=== PATIENT | female | born 1990 | race Caucasian/White ===

== ENCOUNTER → 2018-02-17 15:03 | Outpatient (CLI) | payer OTHER, SELFPAY ==
[2018-02-17 15:23] LABS: Strep Scrn Group A (Rapid) Negative (Negative)
== END ==
PROVIDERS: Visit Provider Nurse Practitioner Family
DX: J02.9 Acute pharyngitis, unspecified (principal)
CPT/HCPCS: 87430

== ENCOUNTER → 2018-03-13 17:10 | Outpatient (CLI) | payer OTHER, SELFPAY ==
[2018-03-13 18:55] LABS: HCG Qualitative, Serum Negative (Negative)
[2018-03-13 19:17] LABS: Basophils % 0.5 % (0.1-2.0); Eosinophils # 0.1 K/mm3 (0.0-0.4); Eosinophils % 0.9 % (0.1-12.0); Hematocrit 44.3 % (37.0-47.0); Hemoglobin 14.9 g/dL (12.2-16.2); Lymphocytes # 2.5 K/mm3 (0.7-4.5); Lymphocytes % 36.3 K/mm3 (10-50); Mean Corpuscular HGB Conc 33.7 g/dL (31.8-35.4); Mean Corpuscular Hemoglobin 32.3 pg (27.0-31.2); Mean Platelet Volume 9.8 fl (7.4-10.4); Monocytes # 0.3 K/mm3 (0.1-1.0); Monocytes % 4.6 % (1.7-9.3); Neutrophils % 57.7 % (37.0-80.0); Platelet Count 206 K/mm3 (142-424); Red Blood Count 4.62 M/mm3 (4.20-5.40); White Blood Count 6.8 K/mm3 (4.8-10.8)
== END ==
PROVIDERS: Visit Provider Otolaryngology
DX: Z01.818 Encounter for other preprocedural examination (principal); J35.01 Chronic tonsillitis
CPT/HCPCS: 36415; 84703; 85025

== ENCOUNTER → 2018-08-05 20:23 | Outpatient (REF) | payer OTHER, SELFPAY | LOC: LAB 20:23 | PROVIDERS: Visit Provider Nurse Practitioner Family | DX: R50.9 Fever, unspecified (principal) ==

== ENCOUNTER → 2019-03-30 10:33 | Outpatient (CLI) | payer OTHER, SELFPAY ==
[2019-03-30 10:41] LABS: Microscopic, Urine URINE MICROSCOPIC (MICROSCOPIC)
[2019-03-30 11:54] LABS: Appearance,Urine SL CLOUDY (Clear); Bilirubin,Urine Negative (Negative); Blood, Urine 3+ (Negative); Color,Urine YELLOW (Yellow); Glucose,Urine (UA) Negative (Negative); Ketones,Urine Negative (Negative); Leukocyte Esterase,Urine Negative (Negative); Nitrate,Urine Negative (Negative); PH,Urine 5.5 (5.0-8.5); Protein,Urine Negative (Negative); Specific Gravity, Urine >= 1.030 (1.005-1.030); Urobilinogen,Urine 0.2 EU/dl (0.2)
[2019-03-30 11:59] LABS: Creatinine,Urine Random 197 mg/dL (20-320); Total Protein,Urine Random 20.4 mg/dL (0.0-11.9)
[2019-03-30 12:05] LABS: Bacteria,Urine Trace /lpf; WBC,Urine Occasional #/hpf (0-3)
[2019-03-30 12:39] LABS: Albumin Level 3.8 gm/dL (3.4-5.0); Anion Gap 11.3 mEq/L (5-15); Blood Urea Nitrogen 12 mg/dL (7-18); Carbon Dioxide 28 mmol/L (21.0-32.0); Chloride 107 mmol/L (98-107); Creatinine,Serum 0.75 mg/dL (0.55-1.02); Estimated Glomerular Filt Rate 91 ml/min (>60); GFR (African American) 111 ML/MIN (>60); Glucose 79 mg/dL (74-106); Phosphorous 3.6 mg/dL (2.4-4.9); Potassium 4.3 mmoL/L (3.5-5.1); Sodium 142 mmol/L (136-145)
[2019-04-01 06:06] LABS: Antinuclear Antibodies, IFA Positive (.); Complement C3 139 mg/dL (82-167)
== END ==
PROVIDERS: Visit Provider Internal Medicine Nephrology
DX: R80.9 Proteinuria, unspecified (principal)
CPT/HCPCS: 36415; 80069; 81001; 82570; 84155; 86038; 86161

== ENCOUNTER → 2021-09-13 11:56 | Outpatient (CLI) | payer OTHER, SELFPAY | PROVIDERS: PCP Family Medicine; Visit Provider Nurse Practitioner | DX: Z20.822 Contact with and (suspected) exposure to COVID-19 (principal) | CPT/HCPCS: C9803; U0003; U0005 ==

== ENCOUNTER → 2021-11-16 10:25 | Outpatient (CLI) | payer OTHER, SELFPAY | PROVIDERS: PCP Family Medicine; Visit Provider Nurse Practitioner | DX: Z20.822 Contact with and (suspected) exposure to COVID-19 (principal) | CPT/HCPCS: C9803; U0003; U0005 ==

== ENCOUNTER → 2021-11-27 09:21 | Outpatient (CLI) | payer OTHER, SELFPAY | PROVIDERS: PCP Family Medicine; Visit Provider Nurse Practitioner | DX: U07.1 COVID-19 (principal) | CPT/HCPCS: C9803; U0003; U0005 ==

== ENCOUNTER → 2022-03-28 16:00 | Outpatient (CLI) | payer OTHER, SELFPAY ==
[2022-03-29 08:07] LABS: Coronavirus 19, PCR Not Detected (NotDetected); Influenza A, PCR Not Detected (NotDetected); Influenza B, PCR Not Detected (NotDetected)
== END ==
PROVIDERS: PCP Nurse Practitioner Family; Visit Provider Nurse Practitioner Family
DX: Z20.822 Contact with and (suspected) exposure to COVID-19 (principal)
CPT/HCPCS: 87275; 87276; C9803; U0003; U0005

== ENCOUNTER → 2022-12-24 13:21 | Outpatient (CLI) | payer BC, SELFPAY ==
--- NOTE | 2022-12-24 13:21 | US_ITS ---
FINAL REPORT CLINICAL HISTORY: menorrhagia FINDINGS: Transvaginal Ultrasound Technique: Transvaginal sonographic images of the pelvis were obtained. Findings: The uterus is normal in size. The endometrium is unremarkable. The right ovary is unremarkable. The left ovary is unremarkable. There is no significant free fluid. IMPRESSION: No acute process. Reviewed, Interpreted and Dictated by Kelby Chaves III, MD Transcribed by Jass Zambrano Authenticated and [facility]
== END ==
LOC: RAD 13:21
PROVIDERS: PCP Nurse Practitioner Family; Visit Provider Obstetrics & Gynecology
DX: N92.0 Excessive and frequent menstruation with regular cycle (principal)
CPT/HCPCS: 76830

== ENCOUNTER → 2023-02-26 11:10 | Outpatient (CLI) | payer OTHER, SELFPAY ==
[2023-03-10 21:11] LABS: HIV Screen 4th Generation wRfx Non Reactive; Hep B Surface Ab, Qual Non Reactive; Hepatitis C Antibody Non Reactive
== END ==
PROVIDERS: PCP Nurse Practitioner Family; Visit Provider Allergy & Immunology
DX: Z77.21 Contact with and (suspected) exposure to potentially hazardous body fluids (principal); W46.1XXA Contact with contaminated hypodermic needle, initial encounter
CPT/HCPCS: 36415; 86703; 86706; 87380; G0432

== ENCOUNTER → 2023-03-06 13:03 | Outpatient (CLI) | payer BC, SELFPAY ==
--- NOTE | 2023-03-06 13:11 | XR_ITS ---
FINAL REPORT CLINICAL HISTORY: FRACTURE OF LEFT PATELLA FINDINGS: Left knee Three views were obtained. There is no acute fracture or dislocation. No joint effusion is identified. The joint spaces appear normal. No soft tissue abnormality is identified. IMPRESSION: No acute process. Reviewed, Interpreted and Dictated by Nir Garner MD Transcribed by Ana Escamilla Authenticated and [facility]
== END ==
LOC: RAD 13:06
PROVIDERS: PCP Nurse Practitioner Family; Visit Provider Nurse Practitioner
DX: M25.562 Pain in left knee (principal); S82.002A Unspecified fracture of left patella, initial encounter for closed fracture
CPT/HCPCS: 73562

== ENCOUNTER 2023-03-07 16:10 | Outpatient (RCR) | payer BC, SELFPAY | END 2023-03-07 17:00 | disposition home or self-care (01) | LOC: PT 16:10 | PROVIDERS: Visit Provider Nurse Practitioner Family | DX: S89.92XA Unspecified injury of left lower leg, initial encounter (principal); M25.562 Pain in left knee; M25.462 Effusion, left knee; M25.662 Stiffness of left knee, not elsewhere classified | CPT/HCPCS: 97760 ==

== ENCOUNTER → 2023-03-13 10:11 | Outpatient (CLI) | payer BC, SELFPAY ==
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
== END ==
LOC: RAD 10:11
PROVIDERS: PCP Nurse Practitioner Family; Visit Provider Nurse Practitioner Family
DX: M25.562 Pain in left knee (principal); M25.462 Effusion, left knee
CPT/HCPCS: 73721

== ENCOUNTER 2024-11-02 14:44 | Outpatient (CLI) | payer OTHER, SELFPAY ==
--- NOTE | 2024-11-02 14:44 | MR_ITS ---
FINAL REPORT TECHNIQUE: Multiplanar and multisequence imaging of the brain was obtained before and after contrast injection. CLINICAL HISTORY: rule out acoustic neuroma hearing loss in left ear 9 ml prohance FINDINGS: The overall image quality is somewhat degraded by motion artifact. Specific imaging targeted towards the internal auditory canals was performed as well, in this patient with hearing loss in the left ear. There is no mass effect or midline shift. No abnormal signal is identified in the periventricular or subcortical white matter. No hydrocephalus. The cerebellum and brainstem have a normal appearance. There are no areas of restricted diffusion on diffusion weighted images to suggest acute infarct. Soft tissues are without acute abnormality. Post contrast images reveal no pathologic contrast enhancement. Specifically, there is no evidence of a cerebellopontine angle mass, and there is no enhancement noted in the internal auditory canals. IMPRESSION: No acute intracranial abnormality and no pathologic contrast enhancement. Specifically, no cerebellopontine angle mass or enhancement in the internal auditory canals is identified. Reviewed, Interpreted and Dictated by Hellen Tobar MD Transcribed by Dominique oWods Authenticated and [facility]
[2024-11-02] MEDS: GADOTERIDOL INJ 10ML SYRINGE 9 ML IV (16:52)
[2024-11-02] MEDS: SODIUM CHLORIDE 0.9% 10ML SYR (RAD ONLY) 10 ML IV (16:52)
== END 2024-11-02 23:59 | disposition home or self-care (01) ==
LOC: RAD 14:44
PROVIDERS: PCP Nurse Practitioner; Visit Provider Otolaryngology
DX: H91.92 Unspecified hearing loss, left ear (principal)
CPT/HCPCS: 70553; A9576

== ENCOUNTER 2025-07-08 10:56 | Outpatient (CLI) | payer OTHER, SELFPAY ==
--- NOTE | 2025-07-08 10:58 | XR_ITS ---
FINAL REPORT CLINICAL HISTORY: Lumbar back pain, nki COMPARISON: None FINDINGS: LUMBOSACRAL SPINE SERIES Five views of the lumbosacral spine were obtained. There is no fracture present. There is no malalignment. There are no significant degenerative changes. IMPRESSION: No acute process. Reviewed, Interpreted and Dictated by Nir Garner MD Transcribed by Belinda Nina Authenticated and [facility]
--- OUTSIDE RECORDS SUMMARY | 2025-07-08 11:00 | XMS_ITS | Encounter Summary ---
Author Organization [employer] ([place], [place], [place], [place]) Address [address] [place] [address] Care Team Providers Care Pole Framer Name Role Phone Unavailable Primary Care Provider Unavailabl e Encounter Details Date Type Department Care Team (Late st Contact Info) Description 04/17/2019 Transcribed Document [facility] [place] Family Medicine [address] [place] [address] ProviderChoco MD [address] [place] [address] Social History Tobacco Use Types Packs/Day Years Used Date Smoking Tobacco: Never Assessed Comments Unknown Sex and Gender Information Value Date Recorded Sex Assigned at Female 05/01/2022 8:19 PM CDT Legal Sex Female 8:19 PM CDT Gender Identity Female 05/01/2022 8:19 PM CDT Sexual Orientation Not on file documented as of this encounter Miscellaneous Notes * [employer] Conversion Note - Historical ProviderMD - 04/17/2019 2:00 AM CDT Manager Medical Details Entered On: 04/17/2019 1:37 EDT Performed On: 04/17/2019 2:00 EDT by Citlali Skinner Rn Order Details Transport Mode Order Detail : Wheelchair Isolation Precautions Order Detail : Standard Precautions Order Detail : 0 IV Order Detail : 1 Oxygen Order Detail : 0 Nurse Collect Order Detail : 0 Lift/Transfer : Independent Central Line Order Detail : No Room Service : Appropriate Arterial Line : No Citlali Skinner Rn - 04/17/2019 1:36 EDT documented in this encounter Plan of Treatment Not on file documented as of this encounter Visit Diagnoses Not on filedocumented in this encounter
--- OUTSIDE RECORDS SUMMARY | 2025-07-08 11:00 | XMS_ITS | Encounter Summary ---
Author Organization [employer] ([place], [place], [place], [place]) Address [address] [place] [address] Care Team Providers Care Automotive Glass Technician Name Role Phone Unavailable Primary Care Provider Unavailabl e Encounter Details Date Type Department Care Team (Late st Contact Info) Description 04/16/2019 Transcribed Document [facility] [place] [facility] Family Medicine [address] [place] [address] ProviderChoco MD [address] [place] [address] Social History Tobacco Use Types [...] Cerner Conversion Note - Historical ProviderMD - 04/16/2019 11:22 AM CDT Event Note Entered On: 04/16/2019 11:23 EDT Performed On: 04/16/2019 11:22 EDT by GIO GARVEY RN Event Note Event Date/Time : 04/16/2019 11:22 EDT Event Location : Assigned room Event Details : Other: report called to 4a GIO GARVEY RN - 04/16/2019 11:22 EDT Electronically signed by [facility] Conversion Software Integrator Cerner at 02/22/2023 4:17 PM CDT documented in this encounter Plan of Treatment Not on file documented as of this encounter Visit Diagnoses Not on filedocumented in this encounter
--- OUTSIDE RECORDS SUMMARY | 2025-07-08 11:00 | XMS_ITS | Encounter Summary ---
Author Organization [employer] ([place], [place], [place], [place]) Address [address] [place] [address] Care Team Providers Care Cigar Maker Name Role Phone Unavailable Primary Care Provider Unavailabl e Encounter Details Date Type Department Care Team (Late st Contact Info) Description 04/17/2019 Transcribed Document [facility] [place] Family Medicine [address] [place] [address] ProviderChoco MD [address] [place] [address] Social History Tobacco Use Types Packs/Day Years Used Date Smoking Tobacco: Never Assessed Comments Unknown Sex and Gender Information Value Date Recorded Sex Assigned at Female 05/01/2022 8:19 PM CDT Legal Sex Female 8:19 PM CDT Gender Identity Female 05/01/2022 8:19 PM CDT Sexual Orientation Not on file documented as of this encounter Miscellaneous Notes * Cerner Conversion Note - Choco Mayes MD - 04/17/2019 7:50 AM CDT Patient: NED HOPE Age: 29 years Sex: Female : 1990 Associated Diagnoses: Status post biopsy of kidney, left; Proteinuria; Thrombocytopenia Author: TERRY MARQUES MD-INT Basic Information 29 years old white female with a history of heavy proteinuria was referred for left KIDNEY biopsy by interventional radiology and was admitted under my care for observation after the procedure. Patient denies any abdominal pain or left CVA pain, there is no nausea or vomiting. There is no hematuria or any urinary symptoms. Also that is no fever or chills. Reviewing her blood work, noticed that the patient has thrombocytopenia and I recommended to follow-up with her PCP in 1-2 weeks. Today, patient is awake alert cooperative responsive under no acute distress. She is getting a bowel movement around without any problem. Patient is stable for discharge. Discharge Information Patient had surgery and is recovering well. patient is awake, alert, cooperative, responsive, and is under no acute distress. Patient's pain free. Patient is on DVT prophylaxis and also on scheduled bowel regimen. Urine out-put is adequate. Started on clear liquid diet & advanced as tolerated to regular diet. Review of Systems Constitutional: No fever, No weakness, No fatigue. Eye: No recent visual problem, No double vision, No visual disturbances. Ear/Nose/Mouth/Throat: No nasal congestion, No sore throat. Respiratory: No shortness of breath, No cough, No wheezing. Cardiovascular: No chest pain, No tachycardia. Gastrointestinal: No nausea, No vomiting. Genitourinary: Negative. Musculoskeletal: Negative. Integumentary: No rash, No pruritus. Neurologic: Alert and oriented X4, no dizziness. Health Status Allergies: Allergies (1) Active Reaction No Known Medication Allergies None Documented Current medications: Medications (26) Active Scheduled: (1) docusate sodium 100 mg cap 100 mg 1 Cap, Oral, BID Continuous: (0) PRN: (25) acetaminophen 325 mg tab 650 mg 2 Tab, Oral, Q4H acetaminophen/HYDROcodone 325/5 mg tab 1 Tab, Oral, Q4H acetaminophen/HYDROcodone 325/5 mg tab 2 Tab, Oral, Q4H ALPRAZolam 0.25 mg tab 0.25 mg 1 Tab, Oral, Q6H bisacodyl 10 mg supp 10 mg 1 Supp, Rectal, BID calcium gluconate 1 Gram 10 mL, IV Piggyback, Daily calcium gluconate + NaCl 0.9% 100 mL 2 Gram 20 mL, IV Piggyback, Daily calcium gluconate + NaCl 0.9% 100 mL 2 Gram 20 mL, IV Piggyback, Q12H cloNIDine 0.1 mg tab 0.1 mg 1 Tab, Oral, Q4H HYDROmorphone 1 mg/1 mL inj 0.5 mg 0.5 mL, IV Push, Q2H magnesium hydroxide 8% liq 30 mL 30 mL, Oral, Daily magnesium sulfate 2 Gram 50 mL, IV Piggyback, Daily magnesium sulfate 2 Gram 50 mL, IV Piggyback, Q2H metoclopramide 10 mg/2 mL inj 5 mg 1 mL, IV Push, Q6H ondansetron 4 mg/2 mL inj 4 mg 2 mL, IV Push, Q4H potassium chloride 10 mEq 50 mL, IV Piggyback, Q1H potassium chloride 20 mEq/15 mL liq 20 mEq 15 mL, Feeding Tube, Q2H potassium chloride 20 mEq/15 mL liq 60 mEq 45 mL, Feeding Tube, Q2H potassium chloride CR 20 mEq tab 20 mEq 1 Tab, Oral, Q2H potassium chloride CR 20 mEq tab 60 mEq 3 Tab, Oral, Q2H scopolamine 1.5 mg/72 hr patch 1 Patch, TransDermal, Q3Days sodium phosphate 15 mMole 5 mL, IV Piggyback, Daily sodium phosphate 15 mMole 5 mL, IV Piggyback, Q6H temazepam 15 mg cap 15 mg 1 Cap, Oral, At Bedtime traZODone 50 mg tab 50 mg 1 Tab, Oral, At Bedtime Problem list: Active Problems (2) Proteinuria Renal disease Physical Examination General: Alert and oriented, No acute distress. Eye: Pupils are equal, round and reactive to light, Extraocular movements are intact. HENT: Oral mucosa is moist. Neck: Supple, No carotid bruit, No jugular venous distention, No lymphadenopathy, No thyromegaly. Respiratory: Lungs are clear to auscultation, Breath sounds are equal. Cardiovascular: Normal rate, Regular rhythm, No murmur. Gastrointestinal: Soft, Non-tender, Normal bowel sounds, No organomegaly. Genitourinary: No costovertebral angle tenderness, No inguinal tenderness. Lymphatics: No lymphadenopathy neck, axilla, groin. Musculoskeletal: Normal strength, No swelling. Integumentary: Warm, Intact, No rash. Neurologic: Alert, Oriented, No focal deficits. Psychiatric: Cooperative, Appropriate mood & affect. Review / Management Results review: All Results 04/17/2019 6:47 EDT Sodium Level 141 mmol/L Potassium Level 4.3 mmol/L Chloride Level 110 mmol/L Carbon Dioxide Level 25 mmol/L Anion Gap 10 Glucose Level 83 mg/dL Blood Urea Nitrogen 12 mg/dL Creatinine Level 0.70 mg/dL eGFR >60 mL/min/1.73m2 eGFR NonAfrican >60 mL/min/1.73m2 Bun/Creatinine 17.1 Calcium Level 8.8 mg/dL Protein Total 6.6 Gram/dL Albumin Level 3.6 Gram/dL Globulin 3.0 Gram/dL A/G Ratio 1.2 Bilirubin Total 0.5 mg/dL Alk Phos 43 Units/Liter AST 15 Units/Liter ALT 20 Units/Liter WBC 8.2 K/uL RBC 4.30 Million/uL Hgb 13.8 g/dL Hct 40.7 % MCV 94.7 fL MCH 32.1 pg MCHC 33.9 Gram/dL Platelet Count 155 K/uL LOW MPV 12.6 fL HI RDW 11.9 % Neut % 62.5 % Neut # 5.14 K/uL Lymph % 27.9 % Lymph # 2.29 x10(3)/uL Caroline % 8.0 % Caroline # 0.66 K/uL Eos % 0.7 % Eos # 0.06 x10(3)/uL Baso % 0.5 % Baso # 0.04 x10(3)/uL Slide Review No IG# 0.03 x10(3)/uL IG% 0.40 % 04/16/2019 16:30 EDT Sodium Level 141 mmol/L Potassium Level 3.9 mmol/L Chloride Level 110 mmol/L Carbon Dioxide Level 24 mmol/L Anion Gap 11 Glucose Level 100 mg/dL Blood Urea Nitrogen 12 mg/dL Creatinine Level 0.70 mg/dL eGFR >60 mL/min/1.73m2 eGFR NonAfrican >60 mL/min/1.73m2 Bun/Creatinine 17.1 Calcium Level 8.7 mg/dL Protein Total 6.8 Gram/dL Albumin Level 3.7 Gram/dL Globulin 3.1 Gram/dL A/G Ratio 1.2 Bilirubin Total 0.3 mg/dL Alk Phos 45 Units/Liter AST 17 Units/Liter ALT 24 Units/Liter WBC 8.0 K/uL RBC 4.30 Million/uL Hgb 14.0 g/dL Hct 40.5 % MCV 94.2 fL MCH 32.6 pg HI MCHC 34.6 Gram/dL Platelet Count 129 K/uL LOW MPV 13.2 fL HI RDW 11.9 % Neut % 68.5 % Neut # 5.50 K/uL Lymph % 23.9 % Lymph # 1.92 x10(3)/uL Caroline % 6.6 % Caroline # 0.53 K/uL Eos % 0.4 % Eos # 0.03 x10(3)/uL Baso % 0.4 % Baso # 0.03 x10(3)/uL Slide Review No IG# 0.02 x10(3)/uL IG% 0.20 % 04/16/2019 8:39 EDT eGFR 120 mL/min/1.73m2 eGFR NonAfrican 99 mL/min/1.73m2 Creatinine POC 0.7 mg/dL 04/16/2019 8:28 EDT PT 10.3 Second(s) INR 1.0 . Condition: Stable. Discharge Plan Discharge Summary Plan Discharge Status: stable. Orders Order Profile (Selected) Inpatient Orders Ordered Discharge Notification Pharmacy: Start: 04/17/19 7:49:52 EDT Discharge: Start: 04/17/19 7:49:00 EDT, Discharge to: Home. Diagnosis Status post biopsy of kidney, left - Discharge, Medical. Proteinuria - Discharge, Medical. Thrombocytopenia - Discharge, Medical. Course Improving. Stable. Plan/ pt is HD & CLINICALLY STABLE AFEBRILE OK TO D/C HOME FROM MEDICAL STANDPOINT. Orders Impression and Plan twt 40 mn documented in this encounter Plan of Treatment Not on file documented as of this encounter Visit Diagnoses Not on filedocumented in this encounter
--- OUTSIDE RECORDS SUMMARY | 2025-07-08 11:00 | XMS_ITS | Encounter Summary ---
Author Organization [employer] ([place], [place], [place], [place]) Address [address] [place] [address] Care Team Providers Care Brand Strategist Name Role Phone Unavailable Primary Care Provider Unavailabl e Encounter Details Date Type Department Care Team (Late st Contact Info) Description 04/17/2019 Transcribed Document [facility] [place] [address] [place] [address] ProviderChoco MD [address] [place] [address] Social History Tobacco Use Types [...] Conversion Note - Historical ProviderMD - 04/17/2019 8:08 AM CDT Stroke/Warfarin Instructions Entered On: 04/17/2019 8:09 EDT Performed On: 04/17/2019 8:08 EDT by Chey Pierre RN Stroke/Warfarin Instructions Stroke/TIA Discharge Ins : N/A Warfarin Discharge Ins : N/A Chey Pierre RN - 04/17/2019 8:08 EDT Stroke/TIA Discharge Instructions My LDL Level: : LDL Level No qualifying data available. Chey Pierre RN - 04/17/2019 8:08 EDT documented in this encounter Plan of Treatment Not on file documented as of this encounter Visit Diagnoses Not on filedocumented in this encounter
--- OUTSIDE RECORDS SUMMARY | 2025-07-08 11:00 | XMS_ITS | Encounter Summary ---
Author Organization [employer] ([place], [place], [place], [place]) Address [address] [place] [address] Care Team Providers Care Export Clerk Name Role Phone Unavailable Primary Care Provider Unavailabl e Encounter Details Date Type Department Care Team (Late st Contact Info) Description 04/17/2019 Transcribed Document [facility] [place] Family Medicine [address] [place] [address] ProviderChoco MD [address] [place] [address] Social History Tobacco Use Types [...] Conversion Note - Historical ProviderMD - 04/17/2019 7:49 AM CDT ESTER Entered On: 04/17/2019 7:50 EDT Performed On: 04/17/2019 7:49 EDT by TERRY MARQUES MD-INT ESTER Indication of use for OOCS : Acute Illness OOCS Misuse Suspected : Other Was ESTER queried : Other Patient Advised to seek OOCS Treatment : Other Treatment to Include Limited Supply of OOCS : Other ESTER Result : Other ESTER Other Notes : As per Dr. Valdez office records Patient cancelled on OOCS : Other ESTER : . TERRY MARQUES MD-INT - 04/17/2019 7:49 EDT documented in this encounter Plan of Treatment Not on file documented as of this encounter Visit Diagnoses Not on filedocumented in this encounter
--- OUTSIDE RECORDS SUMMARY | 2025-07-08 11:00 | XMS_ITS | Encounter Summary ---
Author Organization [employer] ([place], [place], [place], [place]) Address [address] [place] [address] Care Team Providers Care Instructor Watch Assembly Name Role Phone Unavailable Primary Care Provider Unavailabl e Encounter Details Date Type Department Care Team (Late st Contact Info) Description 04/17/2019 Transcribed Document [facility] [place] [address] ProviderChoco [place] [address] Social History Tobacco Use Types [...] Conversion Note - Historical ProviderMD - 04/17/2019 8:09 AM CDT Nursing Discharge Summary Entered On: 04/17/2019 8:10 EDT Performed On: 04/17/2019 8:09 EDT by Chey Pierre exchange operator Documentation Patient Disposition, General : Discharge Discharge To : Home with ambulatory/outpatient follow-up Mode Of Departure, General Discharge : Wheelchair Accompanied By, Discharge : Friend IV Discontinued : Yes Personal Belongings With Patient : Yes Pt's Own Supply of Medications Returned : Yes Prescriptions Given to Patient : Yes Discharge Instructions Reviewed With, Opportunity For Questions Given : Patient Patient Education Completed : Yes Number of Prescriptions Given : 0 Teaching Method : Explanation Teaching Evaluation : Verbalizes understanding Education Comment : educated on safety, POC, pain management Chey Pierre RN - 04/17/2019 8:09 EDT Electronically signed by [facility] Conversion Spudder Dani at 02/22/2023 4:33 PM CDT documented in this encounter Plan of Treatment Not on file documented as of this encounter Visit Diagnoses Not on filedocumented in this encounter
--- OUTSIDE RECORDS SUMMARY | 2025-07-08 11:00 | XMS_ITS | Encounter Summary ---
Author Organization [employer] ([place], [place], [place], [place]) Address [address] [place] [address] Care Team Providers Care Legal Records Manager Name Role Phone Unavailable Primary Care Provider Unavailabl e Encounter Details Date Type Department Care Team (Late st Contact Info) Description 04/16/2019 Transcribed Document [facility] [place] Family Medicine [facility] [place] [address] ProviderChoco MD [address] [place] [address] Social History Tobacco Use Types [...] Conversion Note - Historical ProviderMD - 04/16/2019 12:09 PM CDT Admission History, Adult Entered On: 04/16/2019 12:16 EDT Performed On: 04/16/2019 12:09 EDT by Marianne Rogers Rn Advance Directive Patient has Advance Directive *Q : No, patient refuses Advance Directive information Marianne Rogers Rn - 04/16/2019 12:09 EDT Anesthesia/Transfusion History Family History of Anesthesia Reaction : Prior transfusion without reaction Blood Transfusion Acceptable to Patient : Yes Transfusion History : Prior anesthesia without reaction Family History of Anesthesia Reaction : None Marianne Rogers Rn - 04/16/2019 12:09 EDT Functional Assessment Living Situation : Home Patient Lives With : Dependent Child/Children, Spouse Persons Assisting Patient at Home : Spouse Sensory Deficits : None Mobility Assistance Prior to Admission : Independent MORROW Hx Falls Immediate/Within 3 Months : No Current Home Treatments : None Marianne Rogers Rn - 04/16/2019 12:09 EDT General Info Arrived From : Home Mode of Arrival on Unit : Ambulatory Legal Guardian : Spouse Support Person/Pt Rep Name : Nathaniel Gallegos Family/Rep/Phys Notified of Admit : No Emergency Contact #1 : Nathaniel Emergency Contact #1 Emergency Contact #1 Relationship : spouse Emergency Contact #2 : none Emergency Contact #2 Phone Number : none Emergency Contact #2 Relationship : none Primary Language : Yoruba Communication Barrier : None Marianne Rogers Rn - 04/16/2019 12:09 EDT Fall Risk Scales ABCs Fall Injury Risk Identification : None MORROW Hx Falls Immediate/Within 3 Months : No Morrow Secondary Diagnosis : No MORROW Use of Ambulatory Aid : None MORROW IV Therapy or IV Access : Yes Morrow Gait/Transferring : Normal, bedrest, immobile Morrow Mental Status : Oriented to own ability Morrow Fall Risk Score : 20 MORROW Fall Scale Risk Level : 0-24 Low Risk Lawrence Fall Interventions : Adequate lighting, Bed in low position, Call device within reach, Hourly comfort/safety rounds, Non-slip footwear, Personal items within reach, Room free of clutter/spills, Upper side-rails up, Wheels locked, Wires/Cords secured Marianne Rogers Rn - 04/16/2019 12:09 EDT Fall Risk Education Grid Call light use : Verbalizes understanding Nonskid Footwear Use : Verbalizes understanding Marianne Rogers Rn - 04/16/2019 12:09 EDT Barriers to Learning : None evident Learning Style Preferences Family : Verbal explanation Marianne Rogers Rn - 04/16/2019 12:09 EDT Health Histories Smoking Status : Never (less than 100 in lifetime; none in last 30 days) Smokeless Tobacco Status : Never Marianne Rogers Rn - 04/16/2019 12:09 EDT Social History (As Of: 04/16/2019 12:16:18 EDT) Alcohol: Alcohol Use History Yes. Alcohol Use Frequency Rarely. (Last Updated: 04/16/2019 12:13:05 EDT by Marianne Rogers Rn) Substance Abuse: Drug Use Hx: No. Use in Last 12 Months: No. (Last Updated: 04/16/2019 12:13:11 EDT by Marianne Rogers Rn) Height and Weight, Clinical Dosing Height Source : Measured Height Entry Format : [place] Height, Feet : 5 ft(Converted to: 152 cm, 60 Inch) Height, Inches : 1 Inch(Converted to: 0 ft 1 Inch, 2.54 cm) Clinical Height : 154.94 cm Weight Source : Standing scale Weight Entry Format : [place] Clinical Dosing Weight : 48.64 kg Weight, Pounds : 107 lb Body Surface Area (BSA) : 1.45 m2 Body Mass Index : 20.3 kg/m2 [place] Body Weight : 47 kg Marianne Rogers Rn - 04/16/2019 12:09 EDT Infectious Disease History Infectious Disease History : Chicken pox/Shingles, Influenza Isolation Needed : Standard Fever/Chills Last 48 Hours : No Travel To Regions with Travel Advisories : No Travel Outside [place] Within Last 30 Days : No Contact With Traveler to Advisory Region : No Tuberculosis Symptoms : None Marianne Rogers Rn - 04/16/2019 12:09 EDT Influenza Vaccine Asmt, Adult Previous Vaccines from Immunization Schedule : No qualifying data available. Influenza Immunization, Current Season : Yes Marianne Rogers Rn - 04/16/2019 12:09 EDT Pneumococcal Vaccine Previous Vaccines from Immunization Schedule : No qualifying data available. Pneumonia Immunization Received : No Pneumococcal Risk Assessment < Age 65 : None Marianne Rogers Rn - 04/16/2019 12:09 EDT Order Details Transport Mode Order Detail : Ambulatory Room Service : Appropriate Marianne Rogers Rn - 04/16/2019 12:09 EDT Nutrition History Feeding Ability : Independent Eating Poorly Due to Decreased Appetite : No Unplanned Weight Loss in Past 3-6 Months : No Malnutrition Screening Tool Total(mal) : 0 Malnutrition Screening Tool Risk Level : Patient not at risk Marianne Rogers Rn - 04/16/2019 12:09 EDT Psychosocial History Do You Have a History of the Following? : Patient denies history Currently in Unsafe Situation : No Tried to Harm Yourself in the Past? : No Thoughts of Harming/Killing Yourself : No Marianne Rogers Rn - 04/16/2019 12:09 EDT Sleep Apnea Risk Assmt Hx of Obstructive Sleep Apnea Diagnosis : No Snore Loudly : No Tired, Fatigued, or Sleepy During Day : No Observed Stopping Breathing During Sleep : No Have/Are Being Treated for Hypertension : No BMI Greater Than 35 kg/m2 : No Age over 50 Years Old : No Neck Circumference Greater Than 40 cm : No Gender Male : No STOP-BANG Sleep Apnea Risk Level Score : 0 Marianne Rogers Rn - 04/16/2019 12:09 EDT Valuables and Belongings Valuables and Belongings : Clothing, Personal devices, Personal items Clothing : Common streetwear Clothing Disposition : Bedside Personal Device Disposition : With patient Personal Devices : Glasses Personal Items : Purse Personal Items Disposition : With family, With patient Marianne Rogers Rn - 04/16/2019 12:09 EDT documented in this encounter Plan of Treatment Not on file documented as of this encounter Visit Diagnoses Not on filedocumented in this encounter
--- OUTSIDE RECORDS SUMMARY | 2025-07-08 11:00 | XMS_ITS | Encounter Summary ---
Author Organization [employer] ([place], [place], [place], [place]) Address [address] [place] [address] Care Team Providers Care Branch Chief Name Role Phone Unavailable Primary Care Provider Unavailabl e Encounter Details Date Type Department Care Team (Late st Contact Info) Description 04/17/2019 Transcribed Document [facility] [place] Family Medicine [address] [place] [address] ProviderChoco MD [address] [place] [address] Social History Tobacco Use Types [...] Conversion Note - Historical ProviderMD - 04/17/2019 5:00 AM CDT Chart Check - Review Order Profile Entered On: 04/17/2019 4:34 EDT Performed On: 04/17/2019 5:00 EDT by Citlali Skinner Rn Chart Check Powerplans Initiated/Discontinued as Appropriate : Yes All Active Orders Reviewed : Yes Citlali Skinner Rn - 04/17/2019 4:34 EDT documented in this encounter Plan of Treatment Not on file documented as of this encounter Visit Diagnoses Not on filedocumented in this encounter
--- OUTSIDE RECORDS SUMMARY | 2025-07-08 11:00 | XMS_ITS | Encounter Summary ---
Author Organization [employer] ([place], [place], [place], [place]) Address [address] [place] [address] Care Team Providers Care Bookseamer Blindstitch Name Role Phone Unavailable Primary Care Provider Unavailabl e Encounter Details Date Type Department Care Team (Late st Contact Info) Description 04/16/2019 Transcribed Document [facility] [place] [address] [place] [address] ProviderChoco MD [address] [place] [address] Social History Tobacco Use Types [...] Conversion Note - Choco Mayes MD - 04/16/2019 3:42 PM CDT Patient: NED HOPE Age: 29 years Sex: Female : 1990 Associated Diagnoses: Status post biopsy of kidney, left; Proteinuria Author: TERRY MARQUES MD-INT 29 years old white female with no known past medical history other than heavy proteinuria who is admitted today after she had left kidney biopsy by interventional radiology. Patient denies any abdominal pain/left flank pain, nausea or vomiting, hematuria Postoperative Information Patient had surgery today and is recovering well. patient is awake, alert, cooperative, responsive, and is under no acute distress. CurrentlyPatient's pain is well controlled. Patient is on DVT prophylaxis and also on scheduled bowel regimen. Urine out-put is adequate. PT/OT onboard. Review of Systems Constitutional: No fever, No chills. Eye: No visual disturbances. Ear/Nose/Mouth/Throat: No nasal congestion, No sore throat. Respiratory: No shortness of breath, No cough. Cardiovascular: No chest pain, No tachycardia. Gastrointestinal: No nausea, No vomiting, No abdominal pain. Genitourinary: No change in urine stream. Hematology/Lymphatics: No bleeding tendency. Endocrine: No polyuria, No cold intolerance, No heat intolerance. Immunologic: Negative. Musculoskeletal: Negative. Integumentary: Negative. Neurologic: No confusion, No numbness, No tingling, No headache. Psychiatric: No anxiety, No depression. All other systems are negative Health Status Allergies: Allergies (1) Active Reaction No Known Medication Allergies None Documented Current medications: No qualifying data available , Medications (27) Active Scheduled: (1) docusate sodium 100 mg cap 100 mg 1 Cap, Oral, BID Continuous: (0) PRN: (26) acetaminophen 325 mg tab 650 mg 2 Tab, Oral, Q4H acetaminophen/HYDROcodone 325/5 mg tab 1 Tab, Oral, Q4H acetaminophen/HYDROcodone 325/5 mg tab 2 Tab, Oral, Q4H ALPRAZolam 0.25 mg tab 0.25 mg 1 Tab, Oral, Q6H bisacodyl 10 mg supp 10 mg 1 Supp, Rectal, BID calcium gluconate 1 Gram 10 mL, IV Piggyback, Daily calcium gluconate 2 Gram, IV Piggyback, Daily calcium gluconate 2 Gram, IV Piggyback, Q12H cloNIDine 0.1 mg tab 0.1 mg 1 Tab, Oral, Q4H HYDROmorphone 1 mg/1 mL inj 0.5 mg 0.5 mL, IV Push, Q2H magnesium hydroxide 8% liq 30 mL 30 mL, Oral, Daily magnesium sulfate 2 Gram, IV Piggyback, Daily magnesium sulfate 2 Gram, IV Piggyback, Q2H metoclopramide 10 mg/2 mL inj 5 mg 1 mL, IV Push, Q6H ondansetron 4 mg/2 mL inj 4 mg 2 mL, IV Push, Q4H ondansetron 4 mg/2 mL inj 4 mg 2 mL, IV Push, Q4H potassium chloride 20 mEq, Oral, Q2H potassium chloride 60 mEq, Oral, Q2H potassium chloride 10 mEq 50 mL, IV Piggyback, Q1H potassium chloride 20 mEq/15 mL liq 20 mEq 15 mL, Feeding Tube, Q2H potassium chloride 20 mEq/15 mL liq 60 mEq 45 mL, Feeding Tube, Q2H scopolamine 1.5 mg/72 hr patch 1 Patch, TransDermal, Q3Days sodium phosphate 15 mMole 5 mL, IV Piggyback, Daily sodium phosphate 15 mMole 5 mL, IV Piggyback, Q6H temazepam 15 mg cap 15 mg 1 Cap, Oral, At Bedtime traZODone 50 mg tab 50 mg 1 Tab, Oral, At Bedtime Problem list: Active Problems (2) Proteinuria Renal disease Histories Family History: Family history significant for CAD, HTN and cancer Procedure history: wisdom teeth removal. gallbladder removal. x 3. Tonsillectomy ([id number]). fallopian tubes removed. Social History Patient is and has 3 children. There is no history of smoking or drinking alcohol. Physical Examination VS/Measurements Vital Signs/Vital Measures 04/16/2019 11:38 EDT Systolic Blood Pressure 103 mmHg Diastolic Blood Pressure 65 mmHg Temperature Source Oral Temperature Mode Fahrenheit Temperature, Fahrenheit 98.3 Deg F Clinical Temperature, C 36.8 Deg C Heart Rate Monitored 70 bpm Oxygen Saturation 83 % LOW 04/16/2019 11:15 EDT Systolic Blood Pressure 101 mmHg Diastolic Blood Pressure 62 mmHg Mean Arterial Pressure (MAP)-BMDI 77 Heart Rate Monitored 68 bpm Oxygen Saturation 100 % 04/16/2019 11:00 EDT Systolic Blood Pressure 105 mmHg Diastolic Blood Pressure 70 mmHg Mean Arterial Pressure (MAP)-BMDI 83 Heart Rate Monitored 74 bpm Oxygen Saturation 100 % 04/16/2019 10:45 EDT Systolic Blood Pressure 113 mmHg Diastolic Blood Pressure 68 mmHg Mean Arterial Pressure (MAP)-BMDI 86 Heart Rate Monitored 74 bpm Oxygen Saturation 100 % 04/16/2019 10:30 EDT Systolic Blood Pressure 106 mmHg Diastolic Blood Pressure 75 mmHg Mean Arterial Pressure (MAP)-BMDI 84 Heart Rate Monitored 64 bpm Oxygen Saturation 100 % 04/16/2019 10:15 EDT Systolic Blood Pressure 104 mmHg Diastolic Blood Pressure 73 mmHg Mean Arterial Pressure (MAP)-BMDI 82 Heart Rate Monitored 70 bpm Respiratory Rate 19 Breaths/Min Oxygen Saturation 99 % Oxygen Flow Rate 2 Liter/Min 04/16/2019 10:07 EDT Systolic Blood Pressure 108 mmHg Diastolic Blood Pressure 72 mmHg Mean Arterial Pressure (MAP)-BMDI 88 Heart Rate Monitored 78 bpm Respiratory Rate 19 Breaths/Min Oxygen Saturation 100 % 04/16/2019 9:55 EDT Systolic Blood Pressure 105 mmHg Diastolic Blood Pressure 63 mmHg Heart Rate Monitored 75 bpm Respiratory Rate 17 Breaths/Min Oxygen Saturation 100 % Oxygen Therapy Mode Nasal cannula 04/16/2019 9:50 EDT Systolic Blood Pressure 104 mmHg Diastolic Blood Pressure 58 mmHg LOW Heart Rate Monitored 79 bpm Respiratory Rate 14 Breaths/Min Oxygen Saturation 100 % Oxygen Therapy Mode Nasal cannula 04/16/2019 9:45 EDT Systolic Blood Pressure 118 mmHg Diastolic Blood Pressure 57 mmHg LOW Heart Rate Monitored 83 bpm Respiratory Rate 20 Breaths/Min Oxygen Saturation 100 % Oxygen Therapy Mode Nasal cannula Oxygen Flow Rate 2 Liter/Min 04/16/2019 9:40 EDT Systolic Blood Pressure 129 mmHg Diastolic Blood Pressure 56 mmHg LOW Heart Rate Monitored 83 bpm Respiratory Rate 17 Breaths/Min Oxygen Saturation 100 % Oxygen Therapy Mode Nasal cannula Oxygen Flow Rate 2 Liter/Min 04/16/2019 9:35 EDT Systolic Blood Pressure 76 mmHg LOW Diastolic Blood Pressure 48 mmHg LOW Heart Rate Monitored 89 bpm Respiratory Rate 17 Breaths/Min Oxygen Saturation 100 % Oxygen Therapy Mode Nasal cannula Oxygen Flow Rate 2 Liter/Min 04/16/2019 9:30 EDT Heart Rate Monitored 88 bpm Respiratory Rate 19 Breaths/Min Oxygen Saturation 100 % Oxygen Therapy Mode Nasal cannula 04/16/2019 8:37 EDT Systolic Blood Pressure 118 mmHg Diastolic Blood Pressure 74 mmHg Temperature, Fahrenheit 98 Deg F Clinical Temperature, C 36.7 Deg C Peripheral Pulse Rate 74 bpm Oxygen Saturation 98 % General: Alert and oriented, No acute distress. Eye: Pupils are equal, round and reactive to light, Normal conjunctiva, Vision unchanged. HENT: Normocephalic, Tympanic membranes are clear, Normal hearing, Oral mucosa is moist, No pharyngeal erythema, No sinus tenderness. Neck: Supple, Non-tender, No carotid bruit, No jugular venous distention, No lymphadenopathy, No thyromegaly. Respiratory: Lungs are clear to auscultation, Respirations are non-labored, Breath sounds are equal, Symmetrical chest wall expansion, No chest wall tenderness. Cardiovascular: Normal rate, Regular rhythm, No murmur, No gallop, Good pulses equal in all extremities, Normal peripheral perfusion, No edema. Gastrointestinal: Soft, Non-tender, Non-distended, Normal bowel sounds, No organomegaly. Genitourinary: No costovertebral angle tenderness, No inguinal tenderness, No urethral discharge, No lesions. Lymphatics: No lymphadenopathy neck, axilla, groin. Musculoskeletal: Normal range of motion, Normal strength, No tenderness, No swelling, No deformity, Normal gait. Integumentary: Warm, [place], Intact, No pallor, No rash. Neurologic: Alert, Oriented, Normal sensory, Normal motor function, No focal deficits, Cranial Nerves II-XII are grossly intact, Normal deep tendon reflexes. Psychiatric: Cooperative, Appropriate mood & affect, Normal judgment, Non-suicidal. Review / Management Results review: Lab results 04/16/2019 8:28 EDT PT 10.3 Second(s) INR 1.0 . Impression and Plan Diagnosis Status post biopsy of kidney, left - Admitting, Medical. Proteinuria - Admitting, Medical. Course: Plan/ 1-pain control 2-hydration 3-DVT prophylaxis 4-close monitoring H&H E5-close monitoring blood pressure and renal function slowly 6- 6-close monitoring fluid and electrolytes . documented in this encounter Plan of Treatment Not on file documented as of this encounter Visit Diagnoses Not on filedocumented in this encounter
--- OUTSIDE RECORDS SUMMARY | 2025-07-08 11:00 | XMS_ITS | Encounter Summary ---
Author Organization [employer] ([place], [place], [place], [place]) Address [address] [place] [address] Care Team Providers Care Transport Coordinator Name Role Phone Unavailable Primary Care Provider Unavailabl e Encounter Details Date Type Department Care Team (Late st Contact Info) Description 04/17/2019 Transcribed Document [facility] [place] [address] [place] [address] ProviderChoco MD [address] [place] [address] Social History Tobacco Use Types [...] Note - Choco Mayes MD - 04/17/2019 8:06 AM CDT Patient Education Materials Follows: Percutaneous Kidney Biopsy A kidney biopsy is a procedure to remove small pieces of tissue from a kidney. In a percutaneous biopsy, the tissue is removed using a needle that is inserted through the skin. This procedure is done so that the tissue can be examined under a microscope and checked for disease or infection. Tell a health care provider about: ??? Any allergies you have. ??? All medicines you are taking, including vitamins, herbs, eye drops, creams, and [id number] medicines. ??? Any problems you or family members have had with anesthetic medicines. ??? Any blood disorders you have. ??? Any surgeries you have had. ??? Any medical conditions you have. ??? Whether you are or may be . What are the risks? Generally, this is a safe procedure. However, problems may occur, including: ??? Infection. ??? Bleeding. ??? Allergic reactions to medicines. ??? Damage to other structures or organs. ??? Swelling from a collection of clotted blood outside a blood vessel (hematoma). ??? Blood in the urine (hematuria). What happens before the procedure? Follow instructions from your health care provider about eating or drinking restrictions. ??? Ask your health care provider about: ? Changing or stopping your regular medicines. This is especially important if you are taking diabetes medicines or blood thinners. ? Taking medicines such as aspirin and ibuprofen. These medicines can thin your blood. Do not take these medicines before your procedure if your health care provider instructs you not to. ??? You may be given antibiotic medicine to help prevent infection. ??? You will have blood and urine samples taken. This is to make sure that you do not have a condition where you should not have a biopsy. ??? Plan to have someone take you home from the hospital or clinic. ??? Ask your health care provider how your biopsy site will be marked or identified. What happens during the procedure? To lower your risk of infection: ? Your health care team will wash or sanitize their hands. ? Your skin will be washed with soap. ??? An IV tube will be inserted into one of your veins. ??? You will be given one or more of the following: ? A medicine to help you relax (sedative). ? A medicine to numb the area (local anesthetic). ??? You will lie on your abdomen. A firm pillow will be placed under your body to help push the kidneys closer to the surface of the skin. If you have a transplanted kidney, you will lie on your back. ??? The health care provider will stacey the area where the needle will enter your skin. ??? An imaging test?such as an ultrasound, X-ray, CT scan, or MRI?will be used to locate the kidney. These images will also help the health care provider to guide the biopsy needle into the kidney. ??? You will be asked to hold your breath and stay still while the health care provider inserts the needle and removes the kidney tissue. ? You will need to hold your breath and stay still for 30?45 seconds. ? During the biopsy, you may hear a popping sound from the needle. ? You may also feel some pressure from the area where the needle is being inserted. ??? The needle may be inserted and removed 3 or 4 times to make sure that enough tissue is taken for testing. ??? A bandage (dressing) may be placed over the spot where the needle entered your skin (biopsy site). The procedure may vary among health care providers and hospitals. What happens after the procedure? Your blood pressure, heart rate, breathing rate, and blood oxygen level will be monitored until the medicines you were given have worn off. ??? You will need to lie on your back for 6?8 hours. ??? You may have some pain or soreness near the biopsy site. ??? You may have pink or cloudy urine from small amounts of blood. This is normal. ??? You may have grogginess or fatigue if you were given a sedative. ??? Do not drive for 24 hours if you were given a sedative. ??? It is up to you to get the results of your procedure. Ask your health care provider, or the department performing the procedure, when your results will be ready. This information is not intended to replace advice given to you by your health care provider. Make sure you discuss any questions you have with your health care provider. Document Released: 08/31/2005 Document Revised: 08/02/2017 Document Reviewed: 08/02/2017 [employer] Interactive Patient Education ? 2019 [employer] documented in this encounter Plan of Treatment Not on file documented as of this encounter Visit Diagnoses Not on filedocumented in this encounter
--- OUTSIDE RECORDS SUMMARY | 2025-07-08 11:00 | XMS_ITS | Encounter Summary ---
Author Organization [employer] ([place], [place], [place], [place]) Address [address] [place] [address] Care Team Providers Care Director Of Respiratory Therapy Name Role Phone Unavailable Primary Care Provider Unavailabl e Encounter Details Date Type Department Care Team (Late st Contact Info) Description 04/17/2019 Transcribed Document [facility] Family Medicine [address] [place] [address] ProviderChoco MD [address] [place] [address] Social History Tobacco Use Types [...] Note - Choco Mayes MD - 04/17/2019 8:12 AM CDT [facility] [address] [place] [address] NED HOPE :1990 Visit Time:04/16/2019 Your Visit Summary Your Care Team Admitting Physician - TERRY MARQUES MD-INT Attending Physician - TERRY MARQUES MD-INT Primary Care Physician - LEILANI CATES (REF)MD-INT Referring Physician - RIKKI VALDEZ MD-LOY Your Diagnosis Proteinuria, Proteinuria, unspecified Status post biopsy of kidney, left Thrombocytopenia Vitamin D deficiency, unspecified These Are Your Goals Hoping for negative biopsy results Outcome: results of biopsy not yet known Discharge Vitals Temperature 36.8 ??C Heart Rate (Monitored) 79 Respiratory Rate 13 Blood Pressure 121/72 What to do next Instructions From Your Care Team Discharge Follow Up Instructions: Follow-up with Dr. Valdez in 2 weeks, Order Comment: Follow-up with PCP in 1-2 weeks Activity: Discharge Activity: Activity as tolerated Diet: Discharge Diet: Resume usual diet as tolerated Follow-Up Appointments Follow Up with RIKKI VALDEZ MD-BANNER When Within 2 weeks Where: Follow Up with Follow up with primary care provider When Within 2 weeks Medications Take your medications faithfully. Do NOT skip medication. Do NOT stop taking medications without the direction of a physician. Carry a list of your medications with you at all times, and take this medication list with you to your first follow up visit. Report any side effects. Avoid herbal remedies unless discussed with your physician. As part of your treatment plan, your physician may have prescribed a limited course of a controlled substance. This medication may be given to help people with moderate or severe pain or for other medical conditions, but there are risks involved with treatment. Common side effects may include nausea, constipation, drowsiness, sweating, itching, dry mouth, and rash. More serious side effects may include cognitive and motor impairment, like problems with thinking, concentrating, alertness, and movement (e.g. slowed reflexes), and driving and operating heavy machinery can be dangerous. It is important for you to talk to your physician if you have these side effects or questions. These controlled substances can produce physical dependence and be habit-forming if taken for an extended period of time, which means that the body has gotten used to them and may experience withdrawal symptoms if they are abruptly stopped. Withdrawal symptoms can include runny nose, sweating, goose bumps, diarrhea, abdominal cramping, rapid heartbeat, difficulty sleeping, and nervousness. Please dispose of unused and medications per your retail pharmacy guidance. Allergies No Known Medication Allergies Immunizations This Visit No Immunizations Found Stroke/TIA Instructions Mutually Agreed Upon Goals My LDL Level: My LDL Level: Education Materials Percutaneous Kidney Biopsy A kidney biopsy is [...] including vitamins, herbs, eye drops, creams, and tisi-hgu-gypioda medicines. ??? Any problems you or family [...] will enter your skin. ??? An imaging test???such as an ultrasound, X-ray, CT scan, or MRI???will be used to locate the kidney. These images will also help the health care provider to guide the biopsy needle into the kidney. ??? You will be asked to hold your breath and stay still while the health care provider inserts the needle and removes the kidney tissue. ? You will need to hold your breath and stay still for 30???45 seconds. ? During the biopsy, you may [...] need to lie on your back for 6???8 hours. ??? You may have some pain [...] 08/31/2005 Document Revised: 08/02/2017 Document Reviewed: 08/02/2017 [employer] Interactive Patient Education ?? 2019 [employer] Emergency Awareness and Preventative Care STROKE is an EMERGENCY Every Minute Counts Act FAST and Check for these signs: FACE Does the face look uneven? ARM Does one arm drift down? SPEECH Does their speech sound strange? TIME Call at any sign of stroke Stroke Risk Factors Atrial Fibrillation (irregular heartbeat) Diabetes Family history of stroke Heart Disease Heavy alcohol use High Blood Pressure High Cholesterol Physical inactivity and obesity Smoking Cigarette Smoking The facts are clear, cigarette smoking will shorten your life. Smoking can cause many illnesses along the way. As a healthcare provider, we recommend that you stop smoking. Assistance with quitting is available by contacting 5-939-DICFNOW. This is a free resource providing counseling, support, and referral. Or you may contact your personal physician. [place] Suicide Prevention Lifeline: The National Suicide Prevention Lifeline is a national network of local crisis centers that provides free and confidential emotional support to people in suicidal crisis or emotional distress 24 hours a day, 7 days a week. Don't Wait! Stop a Heart Attack Before it Starts What is a heart attack? A heart attack is damage or to a part of the heart from severely decreased or lack of blood flow to the heart. Over time, arteries can become narrow from the buildup of fat and cholesterol, which is called plaque. The plaque can rupture causing a blood clot to form. When the blood clot forms, the artery can become severely narrowed or completely blocked, causing a heart attack. Heart attack is the leading cause of in the [place]. 85% of muscle damage occurs within the first 2 hours. Delay in the recognition of heart attack symptoms increases the chances of . Know the early symptoms of a heart attack: Nausea Feeling of fullness in chest Jaw Pain Pain that travels down one or both arms Fatigue/being tired Anxiety Back Pain Chest pressure, squeezing, or discomfort Shortness of breath Sweating, or a cold sweat Feeling of impending doom There are unusual signs of a heart attack, too! Women, the elderly, and diabetics may present with atypical symptoms: Fainting/dizziness Weakness Confusion Risk Factors for a Heart Attack Some heart disease risk factors, such as age and family history, cannot be changed. Others, like smoking and lack of exercise, can be changed. Smoking High Cholesterol High Blood Pressure Family History Obesity Age Gender (Males are at higher risk) Lack of Exercise Diabetes Diet Stress Excessive Alcohol Intake If you or someone you know is experiencing the signs and symptoms of a heart attack, DON???T DELAY. Call immediately and seek help. If someone collapses, perform CPR! Do not attempt to drive if you are having symptoms of heart attack. Hands-Only CPR Why Hands-Only CPR? Hands-Only CPR has been shown to be as effective as conventional CPR for cardiac arrests that occur outside of a hospital. Survival depends on immediately receiving CPR from someone nearby. How do you perform Hands-Only CPR? There are two easy steps: Call 9-1-1 if you see a teen or adult collapse Push hard and fast in the center of the chest at a beat of 100 beats per minute. Save a life! 4 WAYS TO GET AHEAD OF SEPSIS SEPSIS is a MEDICAL EMERGENCY. Time matters! Infections put you and your family at risk for a life-threatening condition called sepsis. Sepsis is the body's extreme response to an infection. It is life-threatening, and without timely treatment, sepsis can rapidly lead to tissue damage, organ failure, and . Sepsis happens when an infection you already have-in your skin, lungs, urinary tract or somewhere else-triggers a chain reaction throughout your body. 1 PREVENT INFECTIONS Take good care of chronic conditions. Talk to your doctor about getting the recommended vaccines. 2 PRACTICE GOOD HYGIENE Wash your hands frequently. Keep cuts or open sores clean and covered until they are healed. 3 KNOW THE SYMPTOMS Confusion or disorientation Shortness of breath High heart rate Fever, shivering, or feeling very cold Extreme pain or discomfort Clammy or sweaty skin 4 ACT FAST Get medical care IMMEDIATELY if you suspect sepsis or if you have an infection that is not getting better or is getting worse. To learn more about sepsis and how to prevent infections, visit www.cdc.gov/sepsis. Patient Portal Reminder: Be sure to sign up for the [facility] patient portal, which gives you 27/05 access to your medical information ??? including these discharge instructions ??? using your computer, smartphone, or tablet. Just go to [employer] to get started. Questions? Call . Test Results Laboratory or Other Results This Visit (last charted value for your 04/16/2019 visit) Hematology 04/17/19 06:47:00 WBC: 8.2 K/uL -- Normal range between ( 4.5 and 10.5 ) RBC: 4.30 Million/uL -- Normal range between ( 3.93 and 5.22 ) Hct: 40.7 % -- Normal range between ( 34.1 and 44.9 ) Hgb: 13.8 g/dL -- Normal range between ( 11.2 and 15.7 ) Platelet Count: 155 K/uL -- Normal range between ( 163 and 369 ) MCH: 32.1 pg -- Normal range between ( 25.6 and 32.2 ) MCHC: 33.9 Gram/dL -- Normal range between ( 32.2 and 36.5 ) MCV: 94.7 fL -- Normal range between ( 79.0 and 94.8 ) Slide Review: No Eos %: 0.7 % -- Normal range between ( 0.0 and 7.0 ) [place] #: 0.66 K/uL -- Normal range between ( 0.16 and 1.00 ) Eos #: 0.06 x10(3)/uL -- Normal range between ( 0.00 and 0.80 ) [place] %: 8.0 % -- Normal range between ( 3.0 and 9.0 ) Baso %: 0.5 % -- Normal range between ( 0.0 and 1.5 ) Baso #: 0.04 x10(3)/uL -- Normal range between ( 0.00 and 0.20 ) RDW: 11.9 % -- Normal range between ( 11.7 and 14.9 ) Neut %: 62.5 % -- Normal range between ( 34.0 and 71.0 ) Neut #: 5.14 K/uL -- Normal range between ( 1.56 and 6.13 ) Lymph %: 27.9 % -- Normal range between ( 19.3 and 53.1 ) Lymph #: 2.29 x10(3)/uL -- Normal range between ( 1.00 and 3.90 ) MPV: 12.6 fL -- Normal range between ( 9.4 and 12.4 ) IG#: 0.03 x10(3)/uL -- Normal range between ( 0.00 and 0.05 ) IG%: 0.40 % -- Normal range between ( 0.00 and 0.60 ) General Chemistry 04/17/19 06:47:00 Creatinine Level: 0.70 mg/dL -- Normal range between ( 0.55 and 1.02 ) Sodium Level: 141 mmol/L -- Normal range between ( 136 and 146 ) Potassium Level: 4.3 mmol/L -- Normal range between ( 3.5 and 5.1 ) Chloride Level: 110 mmol/L -- Normal range between ( 102 and 112 ) Carbon Dioxide Level: 25 mmol/L -- Normal range between ( 21 and 32 ) Anion Gap: 10 -- Normal range between ( 9 and 20 ) Bilirubin Total: 0.5 mg/dL -- Normal range between ( 0.2 and 1.2 ) A/G Ratio: 1.2 -- Normal range between ( 1.1 and 2.5 ) ALT: 20 Units/Liter -- Normal range between ( 13 and 56 ) AST: 15 Units/Liter -- Normal range between ( 5 and 37 ) Globulin: 3.0 Gram/dL -- Normal range between ( 1.5 and 4.5 ) Alk Phos: 43 Units/Liter -- Normal range between ( 27 and 136 ) Bun/Creatinine: 17.1 -- Normal range between ( 8.0 and 20.0 ) Calcium Level: 8.8 mg/dL -- Normal range between ( 8.4 and 10.1 ) eGFR : >60 mL/min/1.73m2 eGFR NonAfrican: >60 mL/min/1.73m2 Glucose Level: 83 mg/dL -- Normal range between ( 74 and 106 ) Blood Urea Nitrogen: 12 mg/dL -- Normal range between ( 7 and 22 ) Protein Total: 6.6 Gram/dL -- Normal range between ( 6.4 and 8.2 ) Albumin Level: 3.6 Gram/dL -- Normal range between ( 3.4 and 5.0 ) 04/16/19 08:39:00 Creatinine POC: 0.7 mg/dL -- Normal range between ( 0.6 and 1.3 ) Coagulation 04/16/19 08:28:00 INR: 1.0 -- Normal range between ( 0.9 and 1.1 ) PT: 10.3 Second(s) -- Normal range between ( 9.6 and 12.0 ) Computed Tomography 04/16/19 09:50:00 CT Bx Renal LT: CT Bx Renal LT Patient Name:END HOPE SCOOTER CROWLEY I have received and understand this information and was given the opportunity to ask questions. Patient/Divorce Mediator Name: Patient/Divorce Mediator Signature: Relationship to Patient: Clinician/Hospital Divorce Mediator Signature: Date: documented in this encounter Plan of Treatment Not on file documented as of this encounter Visit Diagnoses Not on filedocumented in this encounter
--- OUTSIDE RECORDS SUMMARY | 2025-07-08 11:01 | XMS_ITS | Clinical Summary ---
Author Organization [employer] ([place], [place], [place], [place]) Address [address] [place] [address] Care Team Providers Care Vending Mechanic Name Role Phone Unavailable Primary Care Provider Unavailabl e Social History Tobacco Use Types Packs/Day Years Used Date Smoking Tobacco: Never Assessed Comments Unknown Sex and Gender Information Value Date Recorded Sex Assigned at Female 05/01/2022 8:19 PM CDT Legal Sex Female 8:19 PM CDT Gender Identity Female 05/01/2022 8:19 PM CDT Sexual Orientation Not on file Plan of Treatment Not on file
--- OUTSIDE RECORDS SUMMARY | 2025-07-08 11:01 | XMS_ITS | Patient Health Record ---
Author Organization [facility] Address [address] [facility] [place] [address] Care Team Providers Care Supervisor [employer] Name Role Phone Emelina Ordaz Unavailable [phone] Reason For Referral No Information Social History Social History Sexual History: Social Info Question Answer Notes Sexual History Had sex in the past 12 months (vaginal, oral, or anal)? Yes Drugs/Alcohol: Social Info Question Answer Notes Drugs Have you used drugs other than those for medical reasons in the past 12 months? No Alcohol Screen Did you have a drink containing alcohol in the past year? Yes Points 0 Interpretation Negative Tobacco Use: Social Info Question Answer Notes Tobacco Use/Smoking Are you a former smoker Tobacco use other than smoking: Are you an other tobac co user? No Plan Of Treatment No Information
--- OUTSIDE RECORDS SUMMARY | 2025-07-08 11:01 | XMS_ITS | Encounter Summary ---
Author Organization [employer] ([place], [place], [place], [place]) Address [address] [place] [address] Care Team Providers Care Stock Car Driver Name Role Phone Unavailable Primary Care Provider Unavailabl e Encounter Details Date Type Department Care Team (Late st Contact Info) Description 04/16/2019 Transcribed Document [facility] Family Medicine [address] [place] [address] ProviderChoco MD [address] [place] [address] Social History Tobacco Use Types [...] Conversion Note - Historical ProviderMD - 04/16/2019 9:30 AM CDT Patient: NED OHPE Age: 29 years Sex: Female : 1990 Associated Diagnoses: None Author: FIDEL RUDD PA-UNK Pre-OP/Procedure Diagnosis: Abnormal renal function / labs. Renal disease Post-OP/Procedure Diagnosis: same Procedure Performed: CT guidedcore biopsy Procedural MD: Arnie Dominguez MD Search Engine Optimization Consultant: JOB Rudd Sedation: IV versed and fentanyl Findings: _ Technically successful biopsy Complications: No significant bleeding EBL: Minimal Specimen(s) Removed: _ Pathology is pending. Full report to follow. Electronically signed by Sylwia Santillan [employer] Energy Operations Vice President Cerner at 02/22/2023 4:11 PM CDT documented in this encounter Plan of Treatment Not on file documented as of this encounter Visit Diagnoses Not on filedocumented in this encounter
--- OUTSIDE RECORDS SUMMARY | 2025-07-08 11:01 | XMS_ITS | Clinical Summary ---
Author Organization [facility] Address [address] [place] [address] Care Team Providers Care Farm Truck Driver Name Role Phone Provider, No Known Primary Care Provider [phone] Allergies Active Allergy Reactions Criticality Noted Date Comments Amoxicillin-Pot Clavulanate GI Intolerance Medium 07/06 Medications No known medications Active Problems Problem Noted Date Diagnosed Date Consultation for female sterilization 06/19/2016 Previous delivery affecting , antepartum 05/08/2016 arrhythmia affecting , antepartum 05/08/2016 Resolved Problems Problem Noted Date Diagnosed Date Resolved Date Partial previa 05/08/2016 05/08/2016 Family History Medical History Relation Name Comments No Known Problems Father No Known Problems Mother Relation Name Status Comments Father GUNSHOT Mother Alive Social History Tobacco Use Types Packs/Day Years Used Date Smoking Tobacco: Never Alcohol Use Standard Drinks/Week Comments No 0 (1 standard drink = 0.6 oz pur e alcohol) Abuse Screen Answer Date Recorded Unsafe at Home or Work/School Not on file Feels Threatened by Someone? Not on file 09/2023 Does Anyone Keep You from Co ntacting Others or Doint Things Outside the Home? Not on file 08/14/2023 Physical Sign of Abuse Present Not on file 1 Housing Stability Answer Date Recorded Current Living Arrangements Not on file 08/04 Potentially Unsafe Housing Conditions Not on ravinder e 08/14/2023 Family and Community Support Answer Isac e Recorded Help with Day-to-Day Activities Not on file 08/14/2023 Lonely or Isolated Not on file 08/14/2023 Employment Answer Date Recorded Do you want help finding or keeping work or a jackie b? Not on file 08/14/2023 Disabilities Answer Date Recorded Concentrating, Remembering, or Making Decisions Difficulty Not on file 08/14/2023 Doing Errands Independently Difficulty Not on fi le 08/14/2023 Education Answer Date Recorded Help with school or training? Not on file Preferred Language Not on file 08/14/2023 Comments No Sex and Gender Information Value Date Recorded Sex Assigned at Not on file Legal Sex Female 2:24 PM EDT Gender Identity Not on file Sexual Orientation Not on file Last Filed Vital Signs Vital Sign Reading Time Taken Comments Blood Pressure 110/68 05/13/2018 8:29 AM EDT Pulse 86 07/02/2018 8:11 AM EDT Temperature 36.6 C (97.8 F) 07/02/2018 8:11 AM EDT Respiratory Rate 12 07/02/2018 8:11 AM EDT Oxygen Saturation 98% 07/02/2018 8:11 AM EDT Inhaled Oxygen Concentration - - Weight 48.9 kg (107 lb 12.8 oz) 07/02/2018 8:11 AM EDT Height 154.9 cm (5' 1 ) 07/02/2018 8:11 AM EDT Body Mass Index 20.37 07/02/2018 8:11 AM EDT Plan of Treatment Health Maintenance Due Date Last Done Comments Annual Gynecologic Pelvic an d Breast Exam 1990 TDAP/TD VACCINES (1 - Tdap) 2009 ANNUAL PHYSICAL 06/28/2016 HEPATITIS C SCREENING 06/28/2016 COVID-19 Vaccine (2023-2 5 season) 2024 INFLUENZA VACCINE 08/04/2025 Pneumococcal Vaccine 0-49 Aged Out No longer eligible based on patient's age to complete this topic Insurance [employer] Care Teams Farm Truck Driver Relationship Specialty Start Date End Date [place], [place] [address] PCP - General 05/08/16
--- OUTSIDE RECORDS SUMMARY | 2025-07-08 11:01 | XMS_ITS | Encounter Summary ---
Author Organization [employer] ([place], [place], [place], [place]) Address [address] [place] [address] Care Team Providers Care Mop Man Name Role Phone Unavailable Primary Care Provider Unavailabl e Encounter Details Date Type Department Care Team (Late st Contact Info) Description 04/16/2019 Transcribed Document [facility] Family Medicine [facility] [place] [address] ProviderChoco MD [address] [place] [address] Social History Tobacco Use Types [...] Conversion Note - Historical ProviderMD - 04/16/2019 8:37 AM CDT Pre Procedure Adult Entered On: 04/16/2019 8:41 EDT Performed On: 04/16/2019 8:37 EDT by GIO GARVEY RN Height and Weight, Clinical Dosing Height Source : Measured Height Entry Format : [place] Height, Feet : 5 ft(Converted to: 152 cm, 60 Inch) Height, Inches : 1 Inch(Converted to: 0 ft 1 Inch, 2.54 cm) Clinical Height : 154.94 cm Weight Source : Standing scale Weight Entry Format : [place] Clinical Dosing Weight : 48.64 kg Weight, Pounds : 107 lb Body Surface Area (BSA) : 1.45 m2 Body Mass Index : 20.3 kg/m2 [place] Body Weight : 47 kg GIO GARVEY RN - 04/16/2019 8:37 EDT Health Histories Smoking Status : Never (less than 100 in lifetime; none in last 30 days) Smokeless Tobacco Status : Never GIO GARVEY RN - 04/16/2019 8:37 EDT Social History (As Of: 04/16/2019 08:41:48 EDT) Infectious Disease History Infectious Disease History : Chicken pox/Shingles, Influenza Isolation Needed : Standard Fever/Chills Last 48 Hours : No Travel To Regions with Travel Advisories : No Travel Outside [place] Within Last 30 Days : No Contact With Traveler to Advisory Region : No Tuberculosis Symptoms : None GIO GARVEY RN - 04/16/2019 8:37 EDT Anesthesia/Transfusion History Family History of Anesthesia Reaction : No prior transfusion(s) Transfusion History : Prior anesthesia without reaction Family History of Anesthesia Reaction : None GIO GARVEY RN - 04/16/2019 8:37 EDT Functional Assessment Living Situation : Home Current Home Treatments : None GIO GARVEY RN - 04/16/2019 8:37 EDT Psychosocial History Do You Have a History of the Following? : Patient denies history Currently in Unsafe Situation : No Tried to Harm Yourself in the Past? : No Thoughts of Harming/Killing Yourself : No GIO GARVEY RN - 04/16/2019 8:37 EDT Advance Directive Patient has Advance Directive *Q : No, patient refuses Advance Directive information GIO GARVEY RN - 04/16/2019 8:37 EDT Teaching/Learning Assessment Barriers To Learning : None evident Individuals Taught : Patient Readiness to Learn : Cooperative Readiness to Learn : Explanation Learning Style Preferences Family : Verbal explanation GIO GARVEY RN - 04/16/2019 8:37 EDT Education Topics, Periop Preadmission Perioperative Education Grid Postoperative Care Preparations : Verbalizes understanding Preprocedure Preparations : Verbalizes understanding GIO GARVEY RN - 04/16/2019 8:37 EDT General Info Arrived From : Home Mode of Arrival on Unit : Ambulatory Patient Arrival Date/Time : 04/16/2019 8:00 EDT Legal Guardian : Spouse Support Person/Pt Rep Name : Nathaniel El Family/Rep/Phys Notified of Admit : No Emergency Contact #1 : Nathaniel Emergency Contact #1 Emergency Contact #1 Relationship : spouse Emergency Contact #2 : none Emergency Contact #2 Phone Number : none Emergency Contact #2 Relationship : none Primary Language : Uzbek Communication Barrier : None GIO GARVEY RN - 04/16/2019 8:37 EDT Vital Measurements Temperature, Fahrenheit : 98 Deg F Clinical Temperature, C : 36.7 Deg C Peripheral Pulse Rate : 74 bpm Systolic Blood Pressure : 118 mmHg Diastolic Blood Pressure : 74 mmHg Oxygen Saturation : 98 % GIO GARVEY RN - 04/16/2019 8:37 EDT Sleep Apnea Risk Assmt Hx of [...] Sleep Apnea Risk Level Score : 0 GIO GARVEY RN - 04/16/2019 8:37 EDT Edson Scale Edson Sensory Perception : No impairment Edson Moisture : Rarely moist Edson Activity : Walks frequently Edson Mobility : No limitation Edson Nutrition : Excellent Edson Friction and Shear : No apparent problem Edson Score : 23 GIO GARVEY RN - 04/16/2019 8:37 EDT Pain Assessment Pain Assessment : Initial assessment Pain Scale Used : 0-10 Scale GIO GARVEY RN - 04/16/2019 8:37 EDT Fall Risk Scales ABCs Fall Injury Risk Identification : None MORROW Hx Falls Immediate/Within 3 Months : No [place]row Secondary Diagnosis : Yes MORROW Use of Ambulatory Aid : None MORROW IV Therapy or IV Access : Yes [place] Gait/Transferring : Normal, bedrest, immobile [place] Mental Status : Oriented to own ability [place] Fall Risk Score : 35 MORROW Fall Scale Risk Level : 25-45 Medium Risk [place] Fall Interventions : Adequate lighting, Bed in low position, Call device within reach, Non-slip footwear, Wheels locked GIO GARVEY RN - 04/16/2019 8:37 EDT Valuables and Belongings Valuables and Belongings : Clothing, Personal items Clothing : Common streetwear Clothing Disposition : Bedside Personal Items : Purse Personal Items Disposition : With family GIO GARVEY RN - 04/16/2019 8:37 EDT Pain Scale Intensity : 0 GIO GARVEY RN - 04/16/2019 8:37 EDT Image 4 - Images currently included in the form version of this document have not been included in the text rendition version of the form. documented in this encounter Plan of Treatment Not on file documented as of this encounter Visit Diagnoses Not on filedocumented in this encounter
--- OUTSIDE RECORDS SUMMARY | 2025-07-08 11:01 | XMS_ITS | Encounter Summary ---
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 Role Phone Unavailable Primary Care Provider Unavailabl e Encounter Details Date Type Department Care Team (Late st Contact Info) Description 04/16/2019 Transcribed Document [facility] [place] [facility] [address] [place] [address] ProviderChoco MD [address] [place] [address] Social History Tobacco Use Types [...] Conversion Note - Historical ProviderMD - 04/16/2019 11:23 AM CDT Event Note Entered On: 04/16/2019 11:23 EDT Performed On: 04/16/2019 11:23 EDT by GIO GARVEY, RN Event Note Event Date/Time : 04/16/2019 11:23 EDT Event Location : Assigned room Event Details : Other: to 4a via stretcher GIO GARVEY, RN - 04/16/2019 11:23 EDT Electronically signed by Sylwia Santillan Conversion Labor Relations Or Personnel Negotiator Dani at 02/22/2023 4:27 PM CDT documented in this encounter Plan of Treatment Not on file documented as of this encounter Visit Diagnoses Not on filedocumented in this encounter
--- OUTSIDE RECORDS SUMMARY | 2025-07-08 11:01 | XMS_ITS | Referral Summary ---
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
== END 2025-07-08 23:59 | disposition home or self-care (01) ==
LOC: RAD 10:57
PROVIDERS: PCP Internal Medicine; Visit Provider Internal Medicine
DX: M54.50 Low back pain, unspecified (principal)
CPT/HCPCS: 72110

== ENCOUNTER 2025-08-26 13:06 | Emergency (ER) | payer OTHER, SELFPAY ==
[2025-08-26 13:08] VITALS: BP 135/94; PULSE 82; RESP 20; TEMP 36.7; O2SAT 97; BMI 20.6
[2025-08-26 13:13] VITALS: BP 135/94; PULSE 84; O2SAT 99
--- NOTE | 2025-08-26 13:14 | HMH.EDGENADL ---
Discharge Plan Disposition Patient Disposition: Home, Self-Care Condition: Good Prescriptions Prescriptions: No Action azelastine 137 mcg (0.1 %) spray,non-aerosol 2 spray intranasal BID PRN Rx Instructions: administer into each nostril naproxen 500 mg tablet 500 mg PO BID PRN (Reason: For back pain) Qty: 60 1RF Rx Instructions: Take with food or meal cyclobenzaprine 5 mg tablet 5 mg PO HS PRN (Reason: muscle spasm) Qty: 30 1RF cyclobenzaprine 5 mg tablet 5 mg PO DAILY PRN levocetirizine [Allergy Relief (levocetirizin)] 5 mg tablet 5 mg PO DAILY methylprednisolone 4 mg tablets,dose pack See Rx Instructions PO PER PKG DIR Qty: 21 0RF Rx Instructions: PO PER PKG DIR triamcinolone acetonide 0.1 % cream 1 applic topical TID PRN (Reason: Rash or itching) Qty: 80 1RF metaxalone 800 mg tablet 800 mg PO TID PRN (Reason: Muscle spasms) Qty: 30 1RF Referrals Follow up/Referrals: Waldo Gonzalez MD [Primary Care Provider, Medical] - See instructions Activity Restrictions/Add. Instructions Additional Instructions/Restrictions: Please return to the emergency department with any worsening signs or symptoms. Please take all your at home medication as prescribed. If your headaches become more frequent could consider following up with your PCP/family doctor in the upcoming days to trial your previous migraine type medication. Clinical Impressions Clinical Impression: Headache, migraine Stand Alone Forms Stand Alone Forms: Work/School Release Instructions Patient Instructions: DI for Migraine, DI for Headache Print Language Print Language: Vietnamese Discharge ED Provider: Harish Ricks Adult HPI <MONTSERRAT Merida - Last Filed: 08/26/25 14:48> General Chief complaint: Headache Stated complaint: Migraine for 4 hours, blurred vision Time Seen by Provider: 08/26/25 13:13 Mode of Arrival: Ambulatory Source of Information: Patient Limitations: No Limitations History of Present Illness HPI narrative: 35-year-old female presents the emergency department with a migrainous type headache that has been ongoing since this morning, gradually worsening, no acute onset, patient has remote history of migraine headaches, was previously on what sounds like Nurtec for migraine type headaches, however over the years her frequency of headaches have dropped off thus discontinuing of her medication. Patient has not yet seen her neurologist for these migraine type headaches, patient states this headache does feel similar, she endorses blurry vision bilaterally, as well as headache, no fever no chills, no recent sick contacts or illness, no cough or congestion, no chest pain nausea no vomiting no abdominal pain no constipation, did have some diarrhea this morning, denies any urinary type symptomatology, denies any hematuria melena hematochezia or hematemesis, patient is a non-smoker denies any alcohol or drug use, patient has no other relevant past medical history, with the exception of endometriosis, takes no medications daily at home, has not yet tried any medications to relieve this headache. Patient denies any neck pain, no numbness or tingling, no radicular type symptomatology, no saddle anesthesia no urinary bladder or bowel dysfunction, patient is not on any OCPs. Initial triage vitals are unremarkable Please note that above description of symptoms, in this electronic medical record under categorization of recalled from ER triage doctor by RN are reflective of an initial nursing assessment, however, is not reflective of my full history and physical exam that was personally taken and clarified. Consequentially, this preceding description of symptoms, which may include the patient's categorized chief complaint in the EMR, do not reflect my personal clinical impression, and the ultimate description of history of present illness and patient stated complaints should be deferred to this section of the note. Unless stated otherwise or congruent with this section of the note, additional signs, symptoms, or incongruence should be interpreted as inaccurate with my clinical impression. Onset (ago): hour(s) Related Data Home Medications ?Medication ?Instructions ?Recorded ?Confirmed cyclobenzaprine 5 mg tablet 5 mg PO DAILY PRN 12/07/22 08/19/25 levocetirizine 5 mg tablet 5 mg PO DAILY 09/09/24 08/19/25 (Allergy Relief (levocetirizine)) azelastine 137 mcg (0.1 %) nasal 2 spray intranasal BID PRN 07/07/25 08/19/25 spray Previous Rx's ?Medication ?Instructions ?Recorded cyclobenzaprine 5 mg tablet 5 mg PO HS PRN muscle spasm #30 07/07/25 tabs naproxen 500 mg tablet 500 mg PO BID PRN For back pain 07/07/25 #60 tabs metaxalone 800 mg tablet 800 mg PO TID PRN Muscle spasms 07/09/25 #30 tabs methylprednisolone 4 mg tablets in See Rx Instructions PO PER PKG DIR 08/19/25 a dose pack #21 tabs triamcinolone acetonide 0.1 % 1 applic topical TID PRN Rash or 08/19/25 topical cream itching #80 grams Allergies Allergy/AdvReac Type Severity Reaction Status Date / Time amoxicillin (From Augmentin) Allergy Intermediate Vomiting Verified 08/19/25 11:43 clavulanic acid (From Allergy Intermediate Vomiting Verified 08/19/25 11:43 Augmentin) [facility] <MONTSERRAT Merida - Last Filed: 08/26/25 14:48> [facility] Disclaimer: The information contained in this section may have been updated after the patient was seen, as this information can be updated by other users. Medical History Hearing loss in left ear Monomeric tympanic membrane of left ear Fluid level behind tympanic membrane of left ear Cholesteatoma possible Fluid level behind tympanic membrane of left ear Fluid level behind tympanic membrane of both ears Bilateral serous otitis media Acute left otitis media Family history of endometriosis in first degree relative Endometriosis Dyspareunia Dysmenorrhea Abnormal uterine bleeding Menorrhagia Surgical History H/O tubal ligation Family History Other Asthma Cancer Coronary artery disease Heart attack Hyperlipidemia Hypertension Kidney disease Thyroid disorder Social History Smoking Status: Never smoker alcohol intake: never substance use type: denies use current occupational status: employed Travel in the last 8 weeks?: None household members: spouse and children housing: house Have you lived/traveled outside [place] in past 30 days?: No Contact w/someone who lives/traveled outside US past 30 days?: No Exposure to someone with infectious disease in past 14 days?: No Do you have a fever (greater than 100.4 F or 38 C)?: No Have you tested positive for COVID-19?: No Exposed to someone with COVID-19 in past 14 days?: No Do you have a sore throat?: No Do you have a cough?: No Do you have any weakness?: No Do you have any diarrhea?: No Are you experiencing any unusual bleeding?: No Do you have any muscle aches/pain?: No Do you have any abdominal pain?: No Are you experiencing loss of taste or smell?: No Other Medical History Have you received the Flu Vaccine for this season: No Have you received the Pneumonia Vaccine: No <MONTSERRAT Merida - Last Filed: 08/26/25 14:48> ROS Obtained: Yes All systems reviewed & no additional complaints except as documented Physical Exam <MONTSERRAT Merida - Last Filed: 08/26/25 14:48> General General appearance: alert and in no apparent distress Head Head exam: atraumatic and normocephalic Eye Eye exam: Present PERRL and EOMI ENT ENT exam: Present mucous membranes moist Neck Neck exam: Present normal inspection; Absent tenderness or meningismus Chest Chest inspection: Present normal inspection and symmetric chest wall rise Respiratory Respiratory exam: Present normal lung sounds bilaterally; Absent respiratory distress Cardiovascular Cardiovascular exam: Present regular rate and normal rhythm Abdominal Exam Abdominal exam: Present soft; Absent tenderness Extremities Exam Extremities exam: Present normal inspection Back Exam Back exam: Present normal inspection; Absent tenderness, paraspinal tenderness or vertebral tenderness Neurological Exam Neurological exam: Present alert, oriented X3 and other (5 out of 5 strength in the bilateral lower and upper extremities, move extremities command, no gross sensation deficit no focal neurological deficit) Psychiatric Psychiatric exam: Present normal affect Skin Skin exam: Present warm and dry Medical Decision Making <MONTSERRAT Merida - Last Filed: 08/26/25 14:48> Medical Records Medical records reviewed: Yes I reviewed the patient's medical records. Screening: Per USPSTF and CDC recommendations, given the prevalence of disease in our region, it is our hospital?s policy to screen for HIV and viral Hepatitis for all patients aged 18 and over and those with ongoing risk factors. Parish Inquiry Pt receiving controlled substance: No Parish was queried for this patient: No Vital Signs: 08/26/25 13:08 08/26/25 13:13 Temperature 98.1 F Temperature Source Oral Pulse Rate 84 Pulse Rate [Left Radial] 82 Respiratory Rate 20 Blood Pressure 135/94 H Blood Pressure [Right Arm] 135/94 H Blood Pressure Mean [Right Arm] 107 02 Sat by Pulse Oximetry 97 99 Oxygen Delivery Method Room Air Room Air Lab Data Lab results reviewed: Yes I reviewed the patient's lab results. Lab Results 08/26/25 13:38: Sodium 137, Potassium 4.5, Chloride 99, Carbon Dioxide 29, Anion Gap 13.5, BUN 12, Creatinine 0.60, Estimated Creat Clear 106, Estimated GFR 114, Est GFR ( Amer) 138, Glucose 114 H, Calcium 9.4, Total Bilirubin 0.7, AST 23, ALT 20, Alkaline Phosphatase 62, Total Protein 7.6, Albumin 4.6, Globulin 3.0, Albumin/Globulin Ratio 1.5, Serum HCG, Qual Negative 08/26/25 13:54: WBC 9.9, RBC 4.67, Hgb 14.9, Hct 43.3, MCV 92.7, MCH 31.9 H, MCHC 34.4, RDW 11.7, Plt Count 245, MPV 11.4 H, Neut % (Auto) 79.1, Lymph % (Auto) 14.4, [place] % (Auto) 4.8, Eos % (Auto) 0.3, Baso % (Auto) 0.4, Neut # (Auto) 7.8, Lymph # (Auto) 1.4, [place] # (Auto) 0.5, Eos # (Auto) 0.0, Baso # (Auto) 0.0 08/26/25 13:54 08/26/25 13:38 Orders (Tests/Meds): ED MEDICATIONS Discontinued Medications Generic Name Dose Route Start Last Admin Trade Name Randalq PRN Reason Stop Dose Admin Dexamethasone Sodium Phosphate 10 mg 08/26/25 13:19 08/26/25 13:48 Dexamethasone 4mg/Ml 1ml Vial IV 08/26/25 13:20 10 mg ONCE ONE Administration Diphenhydramine HCl 25 mg 08/26/25 13:19 08/26/25 13:47 Diphenhydramine 50mg/Ml Vial IV 08/26/25 13:20 25 mg ONCE ONE Administration Ketorolac Tromethamine 15 mg 08/26/25 13:20 08/26/25 13:48 Ketorolac 15mg/Ml Vial IV 08/26/25 13:21 15 mg ONCE ONE Administration Prochlorperazine Edisylate 10 mg 08/26/25 13:19 08/26/25 13:48 Prochlorperazine 10mg/2ml Vial IV 08/26/25 13:20 10 mg ONCE ONE Administration ORDERS Category Date Time Status Complete Blood Count Auto Diff Stat Lab 08/26/25 13:54 Completed Comprehensive Metabolic Panel Stat Lab 08/26/25 13:38 Completed HCG Qualitative, Serum Stat Lab 08/26/25 13:38 Completed Medical Decision Narrative: 35-year-old female presents to the emergency department with a headache, blurry vision and nausea differential diagnose include but not limited to, migraine with aura, migraine without aura, ophthalmologic migraine, tension headache, cluster headache, cervicogenic headache among others. I discussed this patient's case with the attending physician Dr. Ricks Will obtain basic laboratory studies hCG qualitative, will give 10 mg IV dexamethasone, 25 mg IV Benadryl, 15 mg IV Toradol and 10 mg IV Compazine for migraine type cocktail. Also of note I did offer advanced neuroimaging studies to the patient at the bedside patient denied at this time would like to pursue migraine type cocktail/IV medication prior to pursuing imaging shared decision making was utilized I believe this is appropriate. Hai states that this migraine type headache is similar to her previous migraines in the past. CMP unremarkable CBC is unremarkable hCG qualitative negative. Reexamination the patient approximate 2:45 PM, patient is resting comfortably in the bed, states her headache and nausea have improved, currently symptom-free, patient has remained hemodynamically stable throughout her time in the emergency department. Patient is cleared to be discharged home to self-care. Patient was given strict ED return precautions. Patient voiced understanding and agreement with current treatment plan/discharge plan <Harish Ricks MD - Last Filed: 08/26/25 14:50> Vital Signs: 08/26/25 13:08 08/26/25 13:13 Temperature 98.1 F Temperature Source Oral Pulse Rate 84 Pulse Rate [Left Radial] 82 Respiratory Rate 20 Blood Pressure 135/94 H Blood Pressure [Right Arm] 135/94 H Blood Pressure Mean [Right Arm] 107 02 Sat by Pulse Oximetry 97 99 Oxygen Delivery Method Room Air Room Air Lab Data Lab Results 08/26/25 13:38: Sodium 137, Potassium 4.5, Chloride 99, Carbon Dioxide 29, Anion Gap 13.5, BUN 12, Creatinine 0.60, Estimated Creat Clear 106, Estimated GFR 114, Est GFR ( Amer) 138, Glucose 114 H, Calcium 9.4, Total Bilirubin 0.7, AST 23, ALT 20, Alkaline Phosphatase 62, Total Protein 7.6, Albumin 4.6, Globulin 3.0, Albumin/Globulin Ratio 1.5, Serum HCG, Qual Negative 08/26/25 13:54: WBC 9.9, RBC 4.67, Hgb 14.9, Hct 43.3, MCV 92.7, MCH 31.9 H, MCHC 34.4, RDW 11.7, Plt Count 245, MPV 11.4 H, Neut % (Auto) 79.1, Lymph % (Auto) 14.4, [place] % (Auto) 4.8, Eos % (Auto) 0.3, Baso % (Auto) 0.4, Neut # (Auto) 7.8, Lymph # (Auto) 1.4, [place] # (Auto) 0.5, Eos # (Auto) 0.0, Baso # (Auto) 0.0 Orders (Tests/Meds): ED MEDICATIONS Discontinued Medications Generic Name Dose Route Start Last Admin Trade Name Freq PRN Reason Stop Dose Admin Dexamethasone Sodium Phosphate 10 mg 08/26/25 13:19 08/26/25 13:48 Dexamethasone 4mg/Ml 1ml Vial IV 08/26/25 13:20 10 mg ONCE ONE Administration Diphenhydramine HCl 25 mg 08/26/25 13:19 08/26/25 13:47 Diphenhydramine 50mg/Ml Vial IV 08/26/25 13:20 25 mg ONCE ONE Administration Ketorolac Tromethamine 15 mg 08/26/25 13:20 08/26/25 13:48 Ketorolac 15mg/Ml Vial IV 08/26/25 13:21 15 mg ONCE ONE Administration Prochlorperazine Edisylate 10 mg 08/26/25 13:19 08/26/25 13:48 Prochlorperazine 10mg/2ml Vial IV 08/26/25 13:20 10 mg ONCE ONE Administration ORDERS Category Date Time Status Complete Blood Count Auto Diff Stat Lab 08/26/25 13:54 Completed Comprehensive Metabolic Panel Stat Lab 08/26/25 13:38 Completed HCG Qualitative, Serum Stat Lab 08/26/25 13:38 Completed Medical Decision Narrative: 35-year-old female presents to the emergency department with a headache, blurry vision and nausea differential diagnose include but not limited to, migraine with aura, migraine without aura, ophthalmologic migraine, tension headache, cluster headache, cervicogenic headache among others. I discussed this patient's case with the attending physician Dr. Ricks Will obtain basic laboratory studies hCG qualitative, will give 10 mg IV dexamethasone, 25 mg IV Benadryl, 15 mg IV Toradol and 10 mg IV Compazine for migraine type cocktail. Also of note I did offer advanced neuroimaging studies to the patient at the bedside patient denied at this time would like to pursue migraine type cocktail/IV medication prior to pursuing imaging shared decision making was utilized I believe this is appropriate. Hai states that this migraine type headache is similar to her previous migraines in the past. CMP unremarkable CBC is unremarkable hCG qualitative negative. Reexamination the patient approximate 2:45 PM, patient is resting comfortably in the bed, states her headache and nausea have improved, currently symptom-free, patient has remained hemodynamically stable throughout her time in the emergency department. Patient is cleared to be discharged home to self-care. Patient was given strict ED return precautions. Patient voiced understanding and agreement with current treatment plan/discharge plan I was consulted by the ZANE, and we discussed the complexity of the problems being addressed. I approve the treatment and management plan for this patient's care in the emergency department, thus performing a substantive portion of the medical decision making. Harish Ricks MD Procedures <Harish Ricks MD - Last Filed: 08/26/25 14:50> Limited Ultrasound Indication:: Indication:: Ultrasound-guided line placement Indication: - Difficult IV access, numerous unsuccessful pokes Identified structures: - Brachial and basilic veins Location/access site: - Brachial vein Vessel patency: - Patent Direct visualization? - Yes Impression: Successful 20g catheter in left upper extremity cephalic vein Images were not saved to permanent archive The study was technically adequate Critical Care <MONTSERRAT Merida - Last Filed: 08/26/25 14:48> Critical Care Time Critical Care Time: No
[2025-08-26] MEDS: PROCHLORPERAZINE 10MG/2ML VIAL 10 MG IV (13:48)
[2025-08-26] MEDS: KETOROLAC 15MG/ML VIAL 15 MG IV (13:48)
[2025-08-26] MEDS: DEXAMETHASONE 4MG/ML 1ML VIAL 10 MG IV (13:48)
[2025-08-26 14:02] LABS: Albumin Level 4.6 g/dl (3.5-5.0); Chloride 99 mmol/L (98-107)
[2025-08-26 14:03] LABS: Potassium 4.5 mmoL/L (3.5-5.1); Sodium 137 mmol/L (136-145)
[2025-08-26 14:05] LABS: Alanine Aminotransferase 20 U/L (12-78); Alkaline Phosphatase 62 U/L (38-126); Anion Gap 13.5 mEq/L (5-15); Aspartate Amino Transferase 23 U/L (14-36); Bilirubin,Total 0.7 mg/dl (0.2-1.3); Blood Urea Nitrogen 12 mg/dl (7-17); Carbon Dioxide 29 mmol/L (22.0-30.0); Creatinine Clearance Estimated 106 mL/min (50-200); Creatinine,Serum 0.60 mg/dl (0.52-1.04); Estimated Glomerular Filt Rate 114 ml/min (>60); GFR (African American) 138 ML/MIN (>60)
[2025-08-26 14:06] LABS: Hematocrit 43.3 % (37.0-47.0); Hemoglobin 14.9 g/dL (12.2-16.2); Immature Granulocytes % 1.0 %; Mean Corpuscular HGB Conc 34.4 g/dL (31.8-35.4); Mean Corpuscular Hemoglobin 31.9 pg (27.0-31.2); Mean Corpuscular Volume 92.7 fl (81-99); Nucleated Red Blood Cells % 0 %; Platelet Count 245 K/mm3 (142-424); Red Blood Count 4.67 M/mm3 (4.20-5.40); Red Cell Distribution Width-SD 39.4 fL; White Blood Count 9.9 K/mm3 (4.8-10.8)
[2025-08-26 14:06] LABS: Albumin/Globulin Ratio 1.5 (1.1-1.8); Calcium 9.4 mg/dl (8.4-10.2); Globulin 3.0 g/dL (1.3-3.2); Glucose 114 mg/dl (74-100); Total Protein,Serum 7.6 g/dl (6.3-8.2)
[2025-08-26 14:14] LABS: HCG Qualitative, Serum Negative (Negative)
[2025-08-26 14:50] VITALS: BP 134/84; PULSE 89; RESP 20; TEMP 36.8; O2SAT 98
== END 2025-08-26 14:52 | disposition home or self-care (01) ==
PROVIDERS: Physician Assistant; Emergency Provider Student in an Organized Health Care Education/Training Program; PCP Internal Medicine
DX: G43.909 Migraine, unspecified, not intractable, without status migrainosus (principal); H53.8 Other visual disturbances
CPT/HCPCS: 80053; 84703; 85025; 96374; 96375; 99283; 99284; J0780; J1100; J1200; J1885